=== PATIENT | female | born 1930 | race American Indian/Alaskan Native ===

== ENCOUNTER 2018-07-29 12:43 | Inpatient (IN) | payer MEDICARE ==
--- NOTE | 2018-07-29 13:11 | Emergency Department Report ---
ED General Adult HPI - General Stated complaint: WEAK/DIZZY Time Seen by Provider: 07/29/18 13:04 Source: patient - History of Present Illness Initial comments: Patient is a 88 years old female with history of dementia and seizure. Patient brought to the emergency room via EMS from assisted living. Patient stated that she feels horrible today but she is not to specify what symptom that she have. Patient daughter called and stated that patient is depressed since she lost her significant other last month. She stated that she's been SAYING that she doesn't want to live anymore. In the emergency room physician just kept saying that she is fine she doesn't have any problem. Patient is alert and oriented 3 in no acute distress. Patient denied headache, chest pain, shortness of breath, nausea or vomiting. No fever or chills. -: This morning Severity scale (0 -10): 3 - Related Data Allergies Allergy/AdvReac Type Severity Reaction Status Date / Time atorvastatin calcium AdvReac Vomiting Unverified 05/27/14 17:51 [From Lipitor] diazoxide AdvReac Unknown Unverified 05/27/14 17:44 erythromycin base AdvReac Vomiting Unverified 05/27/14 17:51 [From Staticin] ethiodized oil AdvReac Unknown Unverified 05/27/14 17:51 [From Lipiodol] ethyl alcohol [From Staticin] AdvReac Vomiting Unverified 05/27/14 17:51 valsartan [From Diovan] AdvReac Unknown Unverified 05/27/14 17:51 ED Review of Systems ROS: Stated complaint: WEAK/DIZZY Other details as noted in HPI ED Past Medical Hx - Past Medical History Previous Medical History?: Yes Hx Hypertension: Yes Hx CVA: No Hx Heart Attack/AMI: No Hx Congestive Heart Failure: No Hx Diabetes: No Hx Deep Vein Thrombosis: No Hx Pulmonary Embolism: No Hx GERD: No Hx Liver Disease: No Hx Renal Disease: No Hx of Cancer: No Hx Sickle Cell Disease: No Hx Arthritis: Yes Hx Headaches / Migraines: No Hx Seizures: No Hx Kidney Stones: No Hx Psychiatric Treatment: No Hx Asthma: No Hx COPD: No 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) Hx Dementia: Yes Hx HIV: No - Surgical History Past Surgical History?: No Hx Coronary Stent: No Hx Open Heart Surgery: No Hx Pacemaker: No Hx Internal Defibrillator: No Hx Cholecystectomy: No Hx Appendectomy: No Hx Breast Surgery: No - Social History Smoking Status: Never Smoker Substance Use Type: None ED Physical Exam - General Limitations: No Limitations General appearance: alert, in no apparent distress - Head Head exam: Present: atraumatic, normocephalic, normal inspection - Eye Eye exam: Present: normal appearance, PERRL - ENT ENT exam: Present: normal exam, normal orophraynx, mucous membranes moist - Neck Neck exam: Present: normal inspection, full ROM. Absent: tenderness, meningismus, lymphadenopathy, thyromegaly - Respiratory Respiratory exam: Present: normal lung sounds bilaterally. Absent: respiratory distress, wheezes, rales, rhonchi, stridor, chest wall tenderness, accessory muscle use, decreased breath sounds, prolonged expiratory - Cardiovascular Cardiovascular Exam: Present: regular rate, normal rhythm, normal heart sounds - GI/Abdominal GI/Abdominal exam: Present: soft, normal bowel sounds. Absent: distended, tenderness, guarding, rebound, rigid, organomegaly, mass, bruit, pulsatile mass - Extremities Exam Extremities exam: Present: normal inspection, full ROM, normal capillary refill. Absent: pedal edema, calf tenderness - Back Exam Back exam: Present: normal inspection, full ROM. Absent: tenderness, CVA tenderness (R), CVA tenderness (L), muscle spasm, paraspinal tenderness, vertebral tenderness - Neurological Exam Neurological exam: Present: alert, oriented X3, CN II-XII intact - Psychiatric Psychiatric exam: Present: normal mood - Skin Skin exam: Present: warm, intact, normal color ED Course Vital Signs 07/29/18 07/29/18 07/29/18 12:49 13:00 13:16 Temperature 97.1 F L Pulse Rate 57 L 52 L 50 L Respiratory 13 21 8 L Rate Blood Pressure 122/64 122/64 Blood Pressure 119/66 [Right] O2 Sat by Pulse 98 96 Oximetry 07/29/18 07/29/18 07/29/18 13:30 13:50 14:00 Temperature Pulse Rate 48 L 53 L 52 L Respiratory 15 16 11 L Rate Blood Pressure 122/64 122/64 115/62 Blood Pressure [Right] O2 Sat by Pulse 97 97 Oximetry 07/29/18 07/29/18 07/29/18 14:16 14:30 14:46 Temperature Pulse Rate 49 L 44 L 48 L Respiratory 10 L 16 12 Rate Blood Pressure 122/64 122/64 122/64 Blood Pressure [Right] O2 Sat by Pulse 98 99 Oximetry 07/29/18 15:00 Temperature Pulse Rate 45 L Respiratory 9 L Rate Blood Pressure 127/64 Blood Pressure [Right] O2 Sat by Pulse 98 Oximetry ED Medical Decision Making - Lab Data Result diagrams: 07/29/18 13:19 07/29/18 13:19 - EKG Data -: EKG Interpreted by Me EKG shows normal: sinus rhythm Rate: bradycardia - EKG Data Interpretation: no acute changes - Radiology Data Radiology results: report reviewed CT brain is unremarkable. Chest x-ray is unremarkable - Medical Decision Making Patient is a 88 years old female with history of dementia and seizure. Patient brought to the emergency room via EMS from assisted living. Patient stated that she feels horrible today but she is not to specify what symptom that she have. Patient daughter called and stated that patient is depressed since she lost her significant other last month. She stated that she's been SAYING that she doesn't want to live anymore. In the emergency room physician just kept saying that she is fine she doesn't have any problem. Patient denied suicidal ideation. Patient is alert and oriented 3 in no acute distress. Patient denied headache, chest pain, shortness of breath, nausea or vomiting. No fever or chills. Patient found to have a lactic acid of 2.9 with no obvious source of infection. Chest x-ray is negative, CT brain is negative. Patient found to have a potassium of 2.7. I discussed the patient with Dr. Owen, he agreed to admit the patient admitted to service. Critical Care Time: Yes Critical care time in (mins) excluding proc time.: 30 Critical care attestation.: If time is entered above; I have spent that time in minutes in the direct care of this critically ill patient, excluding procedure time. ED Disposition Clinical Impression: Generalized weakness, Hypokalemia, Depression Disposition: DC-09 OP ADMIT IP TO THIS HOSP Is pt being admited?: Yes Condition: Stable Referrals: JOSE ALFREDO KELLOGG [Primary Care Provider] - 3-5 Days
[2018-07-29] MEDS ORDERED: NACL 0.9% 1000 ML 1,000 ML IV ONE (13:52)
[2018-07-29 13:55] LABS: Basophils % (Auto) 0.7 % (0.0-1.8); Eosinophils % (Auto) 0.7 % (0.0-4.3); Hematocrit 37.6 % (30.3-42.9); Hemoglobin 12.8 gm/dl (10.1-14.3); Lymphocytes # (Auto) 2.4 K/mm3 (1.2-5.4); Lymphocytes % (Auto) 45.8 % (13.4-35.0); Mean Corpuscular HGB Conc 34 % (30-34); Mean Corpuscular Volume 91 fl (79-97); Monocytes # (Auto) 0.6 K/mm3 (0.0-0.8); Platelet Count 201 K/mm3 (140-440); Red Blood Count 4.12 M/mm3 (3.65-5.03); Red Cell Distribution Width 12.9 % (13.2-15.2)
[2018-07-29 13:57] LABS: Alanine Aminotransferase 9 units/L (7-56); Albumin 3.7 g/dL (3.9-5); BUN/Creatinine Ratio 18; Blood Urea Nitrogen 9 mg/dL (7-17); Calcium 8.5 mg/dL (8.4-10.2); Hemolysis Index 30
[2018-07-29 14:05] LABS: Partial Thromboplastin Time 25.9 Sec. (24.2-36.6)
[2018-07-29 14:16] LABS: Bilirubin,Direct < 0.2 mg/dL (0-0.2)
--- NOTE | 2018-07-29 14:17 | Cat Scan Report ---
FINAL REPORT EXAM: CT HEAD/BRAIN WO CON HISTORY: AMS TECHNIQUE: CT of the head was performed without intravenous contrast. PRIORS: None. FINDINGS: The ventricles are normal in shape and position. The ventricles are nondilated. No intracranial hemo rrhage, mass, mass effect, midline shift or evidence of acute ischemic infarct. The basilar cisterns are patent. Confluent areas of low-attenuation are seen in the periventricular and subcortical white matter. There is diffuse cerebral volume loss. The paranasal sinuses are clear. The extracranial soft tissues demonstrate no abnormality. The calvar ium is intact. The orbits are intact. The mastoid air cells are clear. IMPRESSION: 1. No acute intracranial abnormality. 2. Moderate to severe findings of chronic microvascular ischemic disease and diffuse cerebral volume loss.
--- NOTE | 2018-07-29 15:08 | XRay Report ---
FINAL REPORT EXAM: XR CHEST 1V AP HISTORY: weakness TECHNIQUE: Frontal chest radiograph. PRIORS: None. FINDINGS: The cardiomediastinal silhouette is normal. No focal consolidation. No pleural effusion. No pneumothorax. No acute osseous abnormality. IMPRESSION: No acute cardiopulmonary process.
[2018-07-29] MEDS: KCL 10MEQ/100ML 10 MEQ/100 ML BAG IV SCH ×2 (15:11→16:15)
--- NOTE | 2018-07-29 16:50 | History and Physical Report ---
History of Present Illness Chief complaint: She is weak, and confused History of present illness: 88 YO Female Assisted Living Facility Resident with Dementia, Seizure Disorder, Malnutrition, HTN, OA, TB S/P BCG presents to ED for evaluation. Pt states that she feels fine. Upon further questioning, the patient has poor recall, and poor insight, and is oriented to person only, but is not oriented to time and place. Pt repeats same phrases. As per daughter, and ASSISTED Staff, the patient has experienced increased weakness, and decreased oral intake over the past 2 weeks. EMS notified, and patient transported to [facility] for further care and evaluation. Pt seen and evaluated in ED and found to have Encephalopathy, Acidosis, Debility and is unable to independently conduct activities of daily living. Pt admitted to [facility] unit. Case management consulted for D/C Planning/Placement. PT consulted. Past History Past Medical History: arthritis, hypertension, seizures, other (malnutrition) Past Surgical History: No surgical history, Other (reviewed) Social history: Family history: hypertension Medications and Allergies Allergies Allergy/AdvReac Type Severity Reaction Status Date / Time atorvastatin calcium AdvReac Vomiting Unverified 05/27/14 17:51 [From Lipitor] diazoxide AdvReac Unknown Unverified 05/27/14 17:44 erythromycin base AdvReac Vomiting Unverified 05/27/14 17:51 [From Staticin] ethiodized oil AdvReac Unknown Unverified 05/27/14 17:51 [From Lipiodol] ethyl alcohol [From Staticin] AdvReac Vomiting Unverified 05/27/14 17:51 valsartan [From Diovan] AdvReac Unknown Unverified 05/27/14 17:51 Active Meds: Active Medications Potassium Chloride (Kcl 10meq/100ml) 10 meq in 100 mls @ 100 mls/hr IV Q1H TANA Stop: 07/29/18 16:59 Last Admin: 07/29/18 15:11 Dose: 50 mls/hr Documented by: Review of Systems ROS unobtainable: due to mental status Exam - Constitutional Vitals: Temp Pulse Resp BP Pulse Ox 97.1 F L 45 L 9 L 127/64 98 07/29/18 13:00 07/29/18 15:00 07/29/18 15:00 07/29/18 15:07/29/18 15:00 General appearance: Present: mild distress - EENT Eyes: Present: PERRL ENT: hearing intact, clear oral mucosa - Neck Neck: Present: supple, normal ROM - Respiratory Respiratory effort: normal Respiratory: bilateral: CTA - Cardiovascular Heart Sounds: Present: S1 & S2. Absent: rub, click - Extremities Extremities: pulses symmetrical, No edema Peripheral Pulses: within normal limits - Abdominal General gastrointestinal: Present: soft, non-tender, non-distended, normal bowel sounds Female genitourinary: Present: normal - Integumentary Integumentary: Present: clear, warm, dry - Musculoskeletal Musculoskeletal: generalized weakness - Psychiatric Psychiatric: no appropriate mood/affect, no intact judgment & insight, no memory intact, depressed - Neurologic Neurologic: CNII-XII intact, no focal deficits, moves all extremities, no gait normal Results - Labs CBC & Chem 7: 07/29/18 13:19 07/29/18 13:19 Labs: Abnormal lab results 07/29/18 07/29/18 07/29/18 Range/Units 13:19 13:19 13:19 RDW 12.9 L (13.2-15.2) % Lymph % (Auto) 45.8 H (13.4-35.0) % Towner % (Auto) 11.0 H (0.0-7.3) % Potassium 2.7 L* (3.6-5.0) mmol/L Chloride 97.1 L (98-107) mmol/L Creatinine 0.5 L (0.7-1.2) mg/dL Glucose 109 H (65-100) mg/dL Lactic Acid 2.90 H* (0.7-2.0) mmol/L Total Protein 6.0 L (6.3-8.2) g/dL Albumin 3.7 L (3.9-5) g/dL Salicylates (2.8-20.0) mg/dL Acetaminophen (10.0-30.0) ug/mL 07/29/18 07/29/18 Range/Units 14:57 14:57 RDW (13.2-15.2) % Lymph % (Auto) (13.4-35.0) % Towner % (Auto) (0.0-7.3) % Potassium (3.6-5.0) mmol/L Chloride (98-107) mmol/L Creatinine (0.7-1.2) mg/dL Glucose (65-100) mg/dL Lactic Acid (0.7-2.0) mmol/L Total Protein (6.3-8.2) g/dL Albumin (3.9-5) g/dL Salicylates < 0.3 L (2.8-20.0) mg/dL Acetaminophen < 5.0 L (10.0-30.0) ug/mL Assessment and Plan - Patient Problems (1) Encephalopathy Current Visit: Yes Status: Acute Plan to address problem: CT head, neuro check, aspiration precaution, fall precautions, thyroid panel, b12 level, neuro checks (2) Acidosis Current Visit: Yes Status: Acute Plan to address problem: IVF resuscitation therapy, repeat bmp (3) Malnutrition Current Visit: Yes Status: Acute Plan to address problem: Encourage increased protein intake when awake, and alert (4) DVT prophylaxis Current Visit: Yes Status: Acute Plan to address problem: SCD to BLE while in bed.
[2018-07-29 16:51] LABS: Bacteria,Urine 1+ /HPF (Negative); Bilirubin,Urine NEG (Negative); Blood,Urine SM (Negative); Color,Urine Yellow (Yellow); Mucus,Urine FEW /HPF; Protein,Urine <15 mg/dL mg/dL (Negative); Urobilinogen,Urine < 2.0 mg/dL (<2.0)
[2018-07-29] MEDS ORDERED: TYLENOL PO PRN (16:57)
[2018-07-29] MEDS ORDERED: PROVENTIL IH PRN (16:57)
[2018-07-29] MEDS ORDERED: SODIUM CHLORIDE FLUSH SYRINGE 10 ML IV PRN (16:57)
[2018-07-29] MEDS ORDERED: ZOFRAN IV PRN (16:57)
[2018-07-29 17:07] LABS: Amphetamine Screen,Urine PRESUMPTIVE NEGATIVE; Benzodiazepines Screen,Urine PRESUMPTIVE NEGATIVE; Cannabinoid Screen,Urine PRESUMPTIVE NEGATIVE; Cocaine Screen,Urine PRESUMPTIVE NEGATIVE; Methadone Screen,Urine PRESUMPTIVE NEGATIVE; Opiate Screen,Urine PRESUMPTIVE NEGATIVE
[2018-07-29 18:00] LABS: Free T4 (Free Thyroxine) 1.21 ng/dL (0.76-1.46)
[2018-07-30] MEDS: NACL 0.45% 1,000 ML IV SCH ×4 (02:40→21:58)
[2018-07-30] MEDS: SODIUM CHLORIDE FLUSH SYRINGE 10 ML IV SCH ×3 (02:41→21:38)
[2018-07-30 03:43] LABS: Basophils % (Auto) 0.4 % (0.0-1.8); Eosinophils % (Auto) 0.7 % (0.0-4.3); Hematocrit 40.3 % (30.3-42.9); Hemoglobin 13.8 gm/dl (10.1-14.3); Lymphocytes # (Auto) 2.3 K/mm3 (1.2-5.4); Lymphocytes % (Auto) 38.9 % (13.4-35.0); Mean Corpuscular HGB Conc 34 % (30-34); Mean Corpuscular Volume 92 fl (79-97); Monocytes # (Auto) 0.7 K/mm3 (0.0-0.8); Monocytes % (Auto) 11.2 % (0.0-7.3); Platelet Count 198 K/mm3 (140-440); Red Blood Count 4.39 M/mm3 (3.65-5.03); Red Cell Distribution Width 13.3 % (13.2-15.2)
[2018-07-30 03:55] LABS: BUN/Creatinine Ratio 27; Blood Urea Nitrogen 8 mg/dL (7-17); Calcium 8.5 mg/dL (8.4-10.2); Hemolysis Index 27
--- NOTE | 2018-07-30 08:43 | Progress Note ---
Assessment and Plan Assessment and plan: 88 YO Female Assisted Living Facility Resident with Dementia, Seizure Disorder, Malnutrition, HTN, OA, TB S/P BCG presents to ED for evaluation. Pt states that she feels fine. Upon further questioning, the patient has poor recall, and poor insight, and is oriented to person only, but is not oriented to time and place. Pt repeats same phrases. As per daughter, and [facility] Staff, the patient has experienced increased weakness, and decreased oral intake over the past 2 weeks. EMS notified, and patient transported to [facility] for further care and evaluation. Pt seen and evaluated in ED and found to have Encephalopathy, Acidosis, Debility and is unable to independently conduct activities of daily living. Pt admitted to [facility] unit. Case management consulted for D/C Planning/Placement. PT consulted. ED eval: Patient found to have a lactic acid of 2.9 with no obvious source of infection. Chest x-ray is negative, CT brain is negative for acute pathology but noted to have Moderate to severe findings of chronic microvascular ischemic disease and diffuse cerebral volume loss. Patient found to have a potassium of 2.7. Metabolic Encephalopathy above baseline Dementia Hypokalemia Moderate protein calorie malnutrition Lactic acidosis Hypoglycemia Plan Continue supportive care, patient recieved IV Fluids Replace electrolyte Check Dementia labs- folic acid, b12, esr. tsh already checked and normal [employer] consult Gentle hydration Psych consulted by the ed Monitor Blood glucose Stool softener prn DVT prophy Can discharge back to SNF if stable in am AND IF BACK TO BASELINE History Interval history: Patient seen and examined, no acute distress reported Hospitalist Physical - Physical exam Narrative exam: VITAL SIGNS: Reviewed. GENERAL: The patient appeared well nourished and normally developed. Vital signs as documented. HEAD: No signs of head trauma. EYES: Pupils are equal. Extraocular motions intact. EARS: Hearing grossly intact. MOUTH: Oropharynx is normal. NECK: No adenopathy, no JVD. CHEST: Chest with clear breath sounds bilaterally. No wheezes, rales, or rhonchi. CARDIAC: Regular rate and rhythm. S1 and S2, without murmurs, gallops, or rubs. VASCULAR: No Edema. Peripheral pulses normal and equal in all extremities. ABDOMEN: Soft, without detectable tenderness. No sign of distention. No rebound or guarding, and no masses palpated. Bowel Sounds normal. MUSCULOSKELETAL: Good range of motion of all major joints. Extremities without clubbing, cyanosis or edema. NEUROLOGIC EXAM: Alert and oriented x 3. No focal sensory or strength deficits. Speech normal. Follows commands. PSYCHIATRIC: Mood normal. SKIN: No rash or lesions. - Constitutional Vitals: Temp Pulse Resp BP Pulse Ox 97.9 F 54 L 18 125/71 98 07/30/18 08:10 07/30/18 08:10 07/30/18 08:10 07/30/18 08:10 07/30/18 08:10 General appearance: Present: mild distress Results - Labs CBC & Chem 7: 07/30/18 02:25 07/30/18 02:25 Labs: Laboratory Last Values WBC 5.9 K/mm3 (4.5-11.0) 07/30/18 02:25 RBC 4.39 M/mm3 (3.65-5.03) 07/30/18 02:25 Hgb 13.8 gm/dl (10.1-14.3) 07/30/18 02:25 Hct 40.3 % (30.3-42.9) 07/30/18 02:25 MCV 92 fl (79-97) 07/30/18 02:25 MCH 31 pg (28-32) 07/30/18 02:25 MCHC 34 % (30-34) 07/30/18 02:25 RDW 13.3 % (13.2-15.2) 07/30/18 02:25 Plt Count 198 K/mm3 (140-440) 07/30/18 02:25 Lymph % (Auto) 38.9 % (13.4-35.0) H 07/30/18 02:25 Concho % (Auto) 11.2 % (0.0-7.3) H 07/30/18 02:25 Eos % (Auto) 0.7 % (0.0-4.3) 07/30/18 02:25 Baso % (Auto) 0.4 % (0.0-1.8) 07/30/18 02:25 Lymph # 2.3 K/mm3 (1.2-5.4) 07/30/18 02:25 [place]cho # 0.7 K/mm3 (0.0-0.8) 07/30/18 02:25 Eos # 0.0 K/mm3 (0.0-0.4) 07/30/18 02:25 Baso # 0.0 K/mm3 (0.0-0.1) 07/30/18 02:25 Seg Neutrophils % 48.8 % (40.0-70.0) 07/30/18 02:25 Seg Neutrophils # 2.9 K/mm3 (1.8-7.7) 07/30/18 02:25 PT 13.6 Sec. (12.2-14.9) 07/29/18 13:19 INR 1.00 (0.87-1.13) 07/29/18 13:19 APTT 25.9 Sec. (24.2-36.6) 07/29/18 13:19 Sodium 142 mmol/L (137-145) 07/30/18 02:25 Potassium 3.5 mmol/L (3.6-5.0) L D 07/30/18 02:25 Chloride 101.8 mmol/L (98-107) 07/30/18 02:25 Carbon Dioxide 27 mmol/L (22-30) 07/30/18 02:25 Anion Gap 17 mmol/L 07/30/18 02:25 BUN 8 mg/dL (7-17) 07/30/18 02:25 Creatinine 0.3 mg/dL (0.7-1.2) L 07/30/18 02:25 Estimated GFR > 60 ml/min 07/30/18 02:25 BUN/Creatinine Ratio 27 % 07/30/18 02:25 Glucose 40 mg/dL (65-100) L 07/30/18 02:25 POC Glucose 191 (70-105) H 07/30/18 06:20 Lactic Acid 2.90 mmol/L (0.7-2.0) H* 07/29/18 13:19 Calcium 8.5 mg/dL (8.4-10.2) 07/30/18 02:25 Magnesium 2.10 mg/dL (1.7-2.3) 07/29/18 14:33 Total Bilirubin 0.50 mg/dL (0.1-1.2) 07/29/18 13:19 Direct Bilirubin < 0.2 mg/dL (0-0.2) 07/29/18 13:19 Indirect Bilirubin 0.3 mg/dL 01/27/19 13:19 AST 17 units/L (5-40) 07/29/18 13:19 ALT 9 units/L (7-56) 07/29/18 13:19 Alkaline Phosphatase 49 units/L (35-129) 07/29/18 13:19 Troponin T < 0.010 ng/mL (0.00-0.029) 07/29/18 13:19 Total Protein 6.0 g/dL (6.3-8.2) L 07/29/18 13:19 Albumin 3.7 g/dL (3.9-5) L 07/29/18 13:19 Albumin/Globulin Ratio 1.6 % 07/29/18 13:19 Vitamin B12 353.0 pg/mL (211-911) 07/29/18 21:34 TSH 0.857 mlU/mL (0.270-4.200) 07/29/18 16:59 Free T4 1.21 ng/dL (0.76-1.46) 07/29/18 16:59 Urine Color Yellow (Yellow) 07/29/18 Unknown Urine Turbidity Clear (Clear) 07/29/18 Unknown Urine pH 6.0 (5.0-7.0) 07/29/18 Unknown Ur Specific Mathias 1.005 (1.003-1.030) 07/29/18 Unknown Urine Protein <15 mg/dl mg/dL (Negative) 07/29/18 Unknown Urine Glucose (UA) Neg mg/dL (Negative) 07/29/18 Unknown Urine Ketones Neg mg/dL (Negative) 07/29/18 Unknown Urine Blood Sm (Negative) 07/29/18 Unknown Urine Nitrite Neg (Negative) 07/29/18 Unknown Urine Bilirubin Neg (Negative) 07/29/18 Unknown Urine Urobilinogen < 2.0 mg/dL (<2.0) 07/29/18 Unknown Ur Leukocyte Esterase Mod (Negative) 07/29/18 Unknown Urine WBC (Auto) 6.0 /HPF (0.0-6.0) 07/29/18 Unknown Urine RBC (Auto) 3.0 /HPF (0.0-6.0) 07/29/18 Unknown U Epithel Cells (Auto) 4.0 /HPF (0-13.0) 07/29/18 Unknown Urine Bacteria (Auto) 1+ /HPF (Negative) 07/29/18 Unknown Urine Mucus Few /HPF 07/29/18 Unknown Salicylates < 0.3 mg/dL (2.8-20.0) L 07/29/18 14:57 Urine Opiates Screen Presumptive negative 07/29/18 Unknown Urine Methadone Screen Presumptive negative 07/29/18 Unknown Acetaminophen < 5.0 ug/mL (10.0-30.0) L 07/29/18 14:57 Ur Barbiturates Screen Presumptive negative 07/29/18 Unknown Ur Phencyclidine Scrn Presumptive negative 07/29/18 Unknown Ur Amphetamines Screen Presumptive negative 07/29/18 Unknown U Benzodiazepines Scrn Presumptive negative 07/29/18 Unknown Urine Cocaine Screen Presumptive negative 07/29/18 Unknown U Marijuana (THC) Screen Presumptive negative 07/29/18 Unknown Drugs of Abuse Note Disclamer 07/29/18 Unknown
[2018-07-30] MEDS ORDERED: MAGNESIUM SULFATE IV ONE (08:44)
[2018-07-30] MEDS ORDERED: MAGNESIUM SULFATE 1 GM in NACL 0.9% 50 ML IV ONE (09:00)
[2018-07-30] MEDS ORDERED: LOVENOX SUB-Q SCH ×2 (10:00)
[2018-07-30] MEDS ORDERED: SENOKOT S PO PRN (10:00)
--- NOTE | 2018-07-30 10:13 | Consultation ---
History of Present Illness - Reason for Consult Consult date: 07/30/18 Reason for consult: Mental Health Evaluation Requesting physician: SHAKIRA BURNS - Chief Complaint Chief complaint: "I miss my friend" - History of Present Psychiatric Illness 88 years old female who presented to the ER for "feeling horrible" per the patient. Today the patient is calm and cooperative during the assessment. She stated feeling sad about the of a close friend. She stated that the gentleman was a "righteous man." She stated that they were very close for several years. She stated, "Anyone would be sad if their best friend ." She is adamant that she isn't suicidal when asked. She denies any previous suicide attempts. She was able to recall 1/3 numbers in 5 mins and state the current/past [place] Presidents. She denies being hopeless and helpless. She stated, 'I just miss my friend." She denies SI/HI's and AVH's. She denies erratic sleep and poor appetite. She denies recreational drug use and alcohol consumption (etoh). Medications and Allergies Allergies Allergy/AdvReac Type Severity Reaction Status Date / Time lisinopril Allergy Unknown Verified 07/29/18 20:25 Home Medications Medication Instructions Recorded Confirmed Last Taken Type Amlodipine Besylate [Norvasc] 10 mg PO QDAY 07/29/18 07/29/18 Unknown History Donepezil HCl 40 mg PO ONCE 07/29/18 07/29/18 Unknown History Ezetimibe [Zetia] 10 mg PO QDAY 07/29/18 07/29/18 Unknown History Pravastatin Sodium [Pravastatin] 10 mg PO QHS 07/29/18 07/29/18 Unknown History QUEtiapine [SEROquel] 25 mg PO BID 07/29/18 07/29/18 Unknown History levETIRAcetam [Keppra TAB] 1,000 mg PO BID 07/29/18 07/29/18 Unknown History Active Meds: Active Medications Acetaminophen (Tylenol) 650 mg PO Q4H PRN PRN Reason: Pain MILD(1-3)/Fever >100.5/AGUILERA Albuterol (Proventil) 2.5 mg IH Q4HRT PRN PRN Reason: Shortness Of Breath Enoxaparin Sodium (Lovenox) 40 mg SUB-Q QDAY@1000 TANA Stop: 07/30/18 11:00 Last Admin: 07/30/18 09:23 Dose: 40 mg Documented by: Enoxaparin Sodium (Lovenox) 30 mg SUB-Q QDAY [facility] Sodium Chloride (Nacl 0.45%) 1,000 mls @ 75 mls/hr IV DIRECT [facility] Last Admin: 07/30/18 08:42 Dose: 75 mls/hr Documented by: Potassium Chloride (Kcl 10meq/100ml) 10 meq in 100 mls @ 100 mls/hr IV Q1H TANA Stop: 07/30/18 12:59 Ondansetron HCl (Zofran) 4 mg IV Q8H PRN PRN Reason: Nausea And Vomiting Senna/Docusate Sodium (Senokot S) 2 tab PO Q12H PRN PRN Reason: Laxative Effect Sodium Chloride (Sodium Chloride Flush Syringe 10 Ml) 10 ml IV BID [facility] Last Admin: 07/30/18 09:24 Dose: Not Given Documented by: Sodium Chloride (Sodium Chloride Flush Syringe 10 Ml) 10 ml IV PRN PRN PRN Reason: LINE FLUSH Past psychiatric history - Past Medical History Past Medical History: hypertension Past Surgical History: No surgical history - past Psychiatric treatment and history psychiatric treatment history: Denies a psy hx and fam psy hx. - Social History Social history: other (Reside at a assisted living facility) Mental Status Exam - Vital signs Last Vital Signs Temp 97.9 F 07/30/18 08:10 Pulse 57 L 07/30/18 10:00 Resp 18 07/30/18 08:10 BP 125/71 07/30/18 08:10 Pulse Ox 98 07/30/18 09:19 - Exam Narrative exam: MSE: Appearance: calm, cooperative Behavior: regular eye contact Speech: regular rate and tone Mood: "okay" Affect: congruent to mood Thought Process: logical Thought Content: denies SI/HI's and AVH's Motor Activity: ambulatory Cognition: A/O x3 Insight: fair Judgment: appropriate Results Result Diagrams: 07/30/18 02:25 07/30/18 02:25 Abnormal lab results 07/29/18 07/29/18 07/29/18 Range/Units 13:19 13:19 13:19 RDW 12.9 L (13.2-15.2) % Lymph % (Auto) 45.8 H (13.4-35.0) % Jackson % (Auto) 11.0 H (0.0-7.3) % Potassium 2.7 L* (3.6-5.0) mmol/L Chloride 97.1 L (98-107) mmol/L Creatinine 0.5 L (0.7-1.2) mg/dL Glucose 109 H (65-100) mg/dL POC Glucose (70-105) Lactic Acid 2.90 H* (0.7-2.0) mmol/L Total Protein 6.0 L (6.3-8.2) g/dL Albumin 3.7 L (3.9-5) g/dL Salicylates (2.8-20.0) mg/dL Acetaminophen (10.0-30.0) ug/mL 07/29/18 07/29/18 07/30/18 Range/Units 14:57 14:57 02:25 RDW (13.2-15.2) % Lymph % (Auto) 38.9 H (13.4-35.0) % Jackson % (Auto) 11.2 H (0.0-7.3) % Potassium (3.6-5.0) mmol/L Chloride (98-107) mmol/L Creatinine (0.7-1.2) mg/dL Glucose (65-100) mg/dL POC Glucose (70-105) Lactic Acid (0.7-2.0) mmol/L Total Protein (6.3-8.2) g/dL Albumin (3.9-5) g/dL Salicylates < 0.3 L (2.8-20.0) mg/dL Acetaminophen < 5.0 L (10.0-30.0) ug/mL 07/30/18 07/30/18 Range/Units 02:25 06:20 RDW (13.2-15.2) % Lymph % (Auto) (13.4-35.0) % Jackson % (Auto) (0.0-7.3) % Potassium 3.5 L D (3.6-5.0) mmol/L Chloride (98-107) mmol/L Creatinine 0.3 L (0.7-1.2) mg/dL Glucose 40 L (65-100) mg/dL POC Glucose 191 H (70-105) Lactic Acid (0.7-2.0) mmol/L Total Protein (6.3-8.2) g/dL Albumin (3.9-5) g/dL Salicylates (2.8-20.0) mg/dL Acetaminophen (10.0-30.0) ug/mL All other labs normal. Assessment and Plan Assessment and plan: Impression: Uncomplicated Grieving. The patient is calm and cooperative during the assessment. Recommendation/Plan: Gather collateral information to help determine proper treatment. Will follow up with the patient in 24 hours. Dispo: The patient is pending SNF placement per Case Mgmt. Staffed with Dr Alejandro Pro.
[2018-07-30] MEDS: KCL 10MEQ/100ML 10 MEQ/100 ML BAG IV SCH ×2 (10:30→11:09)
[2018-07-30] MEDS ORDERED: POTASSIUM CHLORIDE PO ONE (11:01)
[2018-07-31] MEDS ORDERED: VISTARIL PO PRN ×2 (08:39→10:00)
[2018-07-31] MEDS ORDERED: LOVENOX SUB-Q SCH (10:00)
[2018-07-31] MEDS: SODIUM CHLORIDE FLUSH SYRINGE 10 ML IV SCH (10:34)
--- NOTE | 2018-07-31 11:41 | Discharge Summary ---
Providers - Providers Date of Admission: 07/29/18 16:57 Attending physician: AGUSTO WATSON MD 07/30/18 08:54 Consult to Dietitian/Nutrition [CONS] Routine Physician Instructions: Reason For Exam: Reason for Consult: Poor oral intake 07/30/18 15:11 Physical Therapy Evaluation and Treat [CONS] Routine Comment: Reason For Exam: General Weakness/Debility Primary care physician: JOSE ALFREDO KELLOGG Hospitalization Reason for admission: weakness, acute kidney injury, decreased oral intake Condition: Stable Pertinent studies: CT head moderate to severe chronic microvascular changes no acute intracranial findings Chest x-ray normal Hospital course: 88 YO Female Assisted Living Facility Resident with Dementia, Seizure Disorder, Malnutrition, HTN, OA, TB S/P BCG presents to ED for evaluation. Pt states that she feels fine. Upon further questioning, the patient has poor recall, and poor insight, and is oriented to person only, but is not oriented to time and place. Pt repeats same phrases. As per daughter, and [facility] Staff, the patient has experienced increased weakness, and decreased oral intake over the past 2 weeks. EMS notified, and patient transported to [facility] for further care and evaluation. Pt seen and evaluated in ED and found to have Encephalopathy, Acidosis, Debility and is unable to independently conduct activities of daily living. Pt admitted to [facility] unit. Case management consulted for D/C Planning/Placement. PT consulted. Patient said she lost her close friend and feeling sad. ED eval: Patient found to have a lactic acid of 2.9 with no obvious source of infection. Chest x-ray is negative, CT brain is negative for acute pathology but noted to have Moderate to severe findings of chronic microvascular ischemic disease and diffuse cerebral volume loss. Patient found to have a potassium of 2.7. Patient was treated with IV fluids and electrolyte replacement. Acidosis resolved, hypokalemia resolved. TSH, folic acid and B12 were within normal limits. By the time I evaluated her patient was admitted on left, oriented and her reasoning is rationale. She was evaluated by mental health and recommended to continue home medications and can be discharged. Patient was hemodynamically stable and discharged back to Home Care. Nutrition was consulted for malnutrition and input appreciated. Disposition: [id number] HOME UNDER [facility] Time spent for discharge: 32 minutes - Discharge Diagnoses (1) Mourning Status: Acute (2) Depression Status: Acute (3) Malnutrition Status: Acute Core Measure Documentation - Palliative Care Palliative Care/ Comfort Measures: Not Applicable - Core Measures Any of the following diagnoses?: none Exam - Physical Exam Narrative exam: Not in cardiopulmonary distress. The patient appeared well nourished and normally developed. Vital signs as documented. Head exam is unremarkable. No scleral icterus . Neck is without jugular venous distension, thyromegaly, or carotid bruits. Lungs are clear to auscultation. Cardiac exam reveals regular rate and Rhythm. First and second heart sounds normal. No murmurs, rubs or gallops. Abdominal exam reveals normal bowel sounds, no masses, no organomegaly and no aortic enlargement. Extremities are nonedematous and both femoral and pedal pulses are normal. MEDICAL TECHNOLOGIST PRN: Alert and oriented 3. No focal weakness. - Constitutional Vitals: Temp Pulse Resp BP Pulse Ox 97.8 F 55 L 20 133/64 98 07/31/18 07:34 07/31/18 09:07 07/31/18 07:34 07/31/18 07:34 07/31/18 08:00 Plan Activity: advance as tolerated Weight Bearing Status: Weight Bear as Tolerated Diet: regular Follow up with: JOSE ALFREDO KELLOGG [Primary Care Provider] - 7 Days
--- NOTE | 2018-07-31 12:06 | Progress Note ---
Subjective - Reason for Consult Consult date: 07/31/18 Reason for consult: Psychiatry Follow-up - Chief Complaint Chief complaint: "Hello" 88 years old female who presented to the ER for "feeling horrible" per the patient. Today the patient is calm and cooperative during the assessment. She stated that she is look forward to returning to her residence when discharged. Per collateral information from the patient's daughter Serena Rizo at [phone], she stated that her mother have been sad most recently of the of her close friend. She stated that she would like a referral for a therapist and psychiatrist in her local area. She stated that the patient's PCP manage all her medications. The patient denies SI/HI's and AVH's. Mental Status Exam - Vital signs Last Vital Signs Temp 97.8 F 07/31/18 07:34 Pulse 55 L 07/31/18 09:07 Resp 20 07/31/18 07:34 BP 133/64 07/31/18 07:34 Pulse Ox 98 07/31/18 08:00 - Exam Narrative exam: MSE: Appearance: calm, cooperative Behavior: regular eye contact Speech: regular rate and tone Mood: "okay" Affect: congruent to mood Thought Process: logical Thought Content: denies SI/HI's and AVH's Motor Activity: ambulatory Cognition: A/O x3 Insight: fair Judgment: appropriate Assessment and Plan Impression: Uncomplicated Grieving. The patient is calm and cooperative during the assessment. Recommendation/Plan: A referral for outpatient psy services given to the patient. Psy sign off. Dispo: The patient can follow up with her PCP and or [facility] for outpatient psy services (therapy). Will staff with Dr Alejandro Pro.
[2018-07-31 13:32] VITALS: BP 159/80
== END 2018-07-31 16:18 | disposition home or self-care (01) | DRG 640 ==
LOC: ED 12:43 → 2B-ACE 16:57
PROVIDERS: ADMIT Internal Medicine; ATTEND Internal Medicine
DX: E87.6 Hypokalemia (principal); G93.41 Metabolic encephalopathy; E44.0 Moderate protein-calorie malnutrition; E87.2 Acidosis; Z68.23 Body mass index [BMI] 23.0-23.9, adult; F03.90 Unspecified dementia, unspecified severity, without behavioral disturbance, psychotic disturbance, mood disturbance, and anxiety; G40.909 Epilepsy, unspecified, not intractable, without status epilepticus; I10 Essential (primary) hypertension; M19.90 Unspecified osteoarthritis, unspecified site; Z86.11 Personal history of tuberculosis; Z82.49 Family history of ischemic heart disease and other diseases of the circulatory system; Z88.8 Allergy status to other drugs, medicaments and biological substances; F32.9 Major depressive disorder, single episode, unspecified; E16.2 Hypoglycemia, unspecified
CPT/HCPCS: 36415; 70450; 71045; 80048; 80076; 80307; 80320; 81001; 82140; 82607; 82747; 82962; 83735; 84439; 84443; 84484; 85025; 85610; 85652; 85730; 93005; 93010; G0378; G0480; J1650; J3475; J3480; J7030; Q0177